=== PATIENT | female | born 2000 | race Caucasian/White ===

== ENCOUNTER 2021-05-15 15:44 | Emergency (ER) ==
[2021-05-15 15:44] VITALS: BP 109/76
[2021-05-15] MEDS ORDERED: NEXP1IMP SC (15:50)
== END 2021-05-15 18:38 | disposition left against medical advice (07) ==
LOC: M ED 15:44
DX: Z53.21 Procedure and treatment not carried out due to patient leaving prior to being seen by health care provider (principal)

== ENCOUNTER 2022-07-18 11:12 | Emergency (ER) | payer OTHER ==
[~2022-07-18] VITALS: Ht 162.6 cm; Wt 62.0 kg
[~2022-07-18 11:12] MED LIST: ETON68IM SC
[2022-07-18] MEDS ORDERED: KETOROLAC 30 MG/ML 1ML VIAL IV ONE (11:50)
[2022-07-18] MEDS ORDERED: NS 1,000 ML IV ONE (11:50)
[2022-07-18] MEDS ORDERED: ONDANSETRON 4MG 2ML VIAL IV ONE (11:50)
[2022-07-18 12:29] LABS: BASO % 0.3 % (0.0-1.0); EOS % 0.4 % (0.0-3.0); HEMATOCRIT 38.8 % (36.0-47.0); HEMOGLOBIN 12.8 g/dl (12.0-15.5); LYMPH # 0.5 10^3/uL (1.5-5.0); LYMPH % 6.8 % (24.0-44.0); MEAN CORPUSCULAR HEMOGLOBIN 28.5 pg (27.0-33.0); MEAN CORPUSCULAR VOLUME 86.4 fl (80.0-96.0); MONO # 0.8 10^3/uL (0.0-0.8); MONO % 12.1 % (2.0-8.0); NEUTROPHILS # 5.4 10^3/uL (1.5-8.5); PLATELET COUNT, AUTOMATED 313 10^3/uL (150-450); RED BLOOD COUNT 4.49 10^6/uL (4.00-5.40); WHITE BLOOD COUNT 6.8 10^3/uL (4.0-10.0)
[2022-07-18] MEDS ORDERED: ISOVUE-370 76% 100ML VIAL As Ordered ONE (12:56)
[2022-07-18 12:58] LABS: LIPASE 21 U/L (12-53)
[2022-07-18 13:03] LABS: ALBUMIN 4.2 G/DL (3.2-5.2); ALKALINE PHOSPHATASE 80 U/L (46-116); ALT/SGPT 16 U/L (7.0-40); AST/SGOT 21 U/L (<34); BILIRUBIN,DIRECT 0.2 MG/DL (<0.4); BILIRUBIN,TOTAL 0.9 MG/DL (0.3-1.2); HCG, SERUM QUANTITATIVE < 2.6 MIU/ML (<4.2); TOTAL PROTEIN 7.2 G/DL (5.7-8.2)
[2022-07-18] MEDS ORDERED: ONDA4TAB6 PO (16:51)
[2022-07-18 16:59] VITALS: BP 108/60
== END 2022-07-18 17:08 | disposition home or self-care (01) ==
LOC: M ED 11:12
DX: R10.9 Unspecified abdominal pain (principal); R11.2 Nausea with vomiting, unspecified; Z79.83 Long term (current) use of bisphosphonates
CPT/HCPCS: 74177; 76830; 76856; 80047; 80076; 81001; 83690; 84702; 85025; 93976; 96374; 96375; 99284; J1885; J2405; Q9967

== ENCOUNTER 2022-09-20 23:29 | Emergency (ER) | payer OTHER ==
[~2022-09-20] VITALS: Ht 162.6 cm; Wt 64.1 kg
[~2022-09-20 23:29] MED LIST changes: +ONDA4TAB6 PO
[2022-09-21 07:31] VITALS: BP 112/74
== END 2022-09-21 07:54 | disposition home or self-care (01) ==
LOC: M ED 23:29
DX: S62.661A Nondisplaced fracture of distal phalanx of left index finger, initial encounter for closed fracture (principal); Z79.83 Long term (current) use of bisphosphonates

== ENCOUNTER → 2022-10-02 | Outpatient (CLI) | payer OTHER | LOC: M SOG 09:19 | PROVIDERS: ATTEND Physician Assistant | DX: S62.660A Nondisplaced fracture of distal phalanx of right index finger, initial encounter for closed fracture (principal) ==

== ENCOUNTER → 2022-10-23 | Outpatient (CLI) | payer OTHER | LOC: M SOG 15:10 | PROVIDERS: ATTEND Orthopaedic Surgery Hand Surgery | DX: S62.660A Nondisplaced fracture of distal phalanx of right index finger, initial encounter for closed fracture (principal); W18.30XA Fall on same level, unspecified, initial encounter; Y92.009 Unspecified place in unspecified non-institutional (private) residence as the place of occurrence of the external cause ==

== ENCOUNTER 2023-05-20 05:20 | Emergency (ER) | payer BC, OTHER ==
[~2023-05-20] VITALS: Ht 162.6 cm; Wt 62.0 kg
[2023-05-20] MEDS ORDERED: NS 1,000 ML IV ONE (06:55)
[2023-05-20] MEDS ORDERED: KETOROLAC 30 MG/ML 1ML VIAL IV ONE (06:55)
[2023-05-20] MEDS ORDERED: ONDANSETRON 4MG 2ML VIAL IV ONE (06:55)
[2023-05-20 07:18] LABS: BASO # 0.1 10^3/uL (0.0-0.2); BASO % 0.4 % (0.0-1.0); EOS # 0.4 10^3/uL (0.0-0.5); EOS % 3.1 % (0.0-3.0); HEMATOCRIT 38.1 % (36.0-47.0); HEMOGLOBIN 12.3 g/dl (12.0-15.5); LYMPH # 2.6 10^3/uL (1.5-5.0); LYMPH % 19.2 % (24.0-44.0); MEAN CORPUSCULAR HEMOGLOBIN 28.7 pg (27.0-33.0); MEAN CORPUSCULAR HGB CONC 32.3 g/dl (32.0-36.5); MEAN CORPUSCULAR VOLUME 88.8 fl (80.0-96.0); MONO # 1.2 10^3/uL (0.0-0.8); MONO % 9.1 % (2.0-8.0); NEUTROPHILS # 9.3 10^3/uL (1.5-8.5); NEUTROPHILS % 67.8 % (36.0-66.0); PLATELET COUNT, AUTOMATED 397 10^3/uL (150-450); RED BLOOD COUNT 4.29 10^6/uL (4.00-5.40); WHITE BLOOD COUNT 13.7 10^3/uL (4.0-10.0)
[2023-05-20 07:53] LABS: ALBUMIN 3.5 G/DL (3.2-5.2); ALKALINE PHOSPHATASE 93 U/L (46-116); ALT/SGPT 16 U/L (7.0-40); AST/SGOT 11 U/L (<34); BILIRUBIN,DIRECT 0.1 MG/DL (<0.4); BILIRUBIN,TOTAL 0.4 MG/DL (0.3-1.2); BLOOD UREA NITROGEN 9 MG/DL (9-23); CALCIUM LEVEL 9.2 MG/DL (8.5-10.1); CARBON DIOXIDE LEVEL 29 MMOL/L (20-31); CHLORIDE LEVEL 106 MMOL/L (98-107); CREATININE FOR GFR 0.65 MG/DL (0.55-1.30); GLOMERULAR FILTRATION RATE > 60.0 (>60); GLUCOSE, FASTING 115 MG/DL (60-100); MAGNESIUM LEVEL 1.9 MG/DL (1.8-2.4); SODIUM LEVEL 138 MMOL/L (136-145); TOTAL PROTEIN 7.5 G/DL (5.7-8.2)
[2023-05-20 07:55] LABS: FREE T4 1.25 NG/DL (0.89-1.76); THYROID STIMULATING HORMONE 2.739 uIU/ML (0.55-4.78)
[2023-05-20 08:37] VITALS: BP 121/70; TEMP 98.1; O2SAT 98
[2023-05-20] MEDS ORDERED: AMOX875T2 PO (08:38)
== END 2023-05-20 08:51 | disposition home or self-care (01) ==
LOC: M ED 05:20
DX: J01.10 Acute frontal sinusitis, unspecified (principal); G43.909 Migraine, unspecified, not intractable, without status migrainosus; Z91.048 Other nonmedicinal substance allergy status; Z79.899 Other long term (current) drug therapy; Z79.2 Long term (current) use of antibiotics
CPT/HCPCS: 70450; 80048; 80076; 83735; 84439; 84443; 84702; 85025; 96361; 96374; 96375; 99284; J1885; J2405